=== PATIENT | female | born 1950 | race Caucasian/White ===

== ENCOUNTER 2018-03-20 13:35 | Inpatient (IN) | payer OTHER ==
[~2018-03-20] VITALS: Ht 154.9 cm; Wt 66.0 kg
[~2018-03-20 13:35] MED LIST: CAR1 PO; COL100 PO; FERROUS SULFAT325 M2 PO; NAPROSYN500 MG PO; PRILOSEC40 MG PO
[2018-03-20 13:49] VITALS: Ht 154.9 cm; Wt 66.0 kg
[2018-03-20 14:26] LABS: BASOPHIL % 0.4 % (0-2); PLATELET COUNT 196 x10^3mcL (130-400); RED CELL DISTRIBUTION WIDTH 13.6 % (11.5-14.5)
[2018-03-20 14:37] LABS: CALCIUM 8.2 mg/dL (8.5-10.1); CREATININE SERUM 1.4 mg/dL (0.6-1.0); POTASSIUM SERUM 3.8 mmol/L (3.5-5.1)
[2018-03-20 14:42] LABS: BILIRUBIN TOTAL 0.2 mg/dL (0.20-1.00); C REACTIVE PROTEIN 9.3 mg/dL (<=0.9); TOTAL PROTEIN, SERUM 7.2 g/dL (6.4-8.2); URIC ACID 6.6 mg/dL (2.6-6.0)
[2018-03-20 14:45] LABS: ALBUMIN 2.9 g/dL (3.4-5.0)
[2018-03-20 15:35] LABS: ERYTHROCYTE SED RATE 95 mm/hr (0-30)
[2018-03-20 16:56] LABS: T3 TOTAL 0.78 ng/mL
[2018-03-20 17:01] VITALS: BP 156/66
[2018-03-20 17:15] LABS: CHOLESTEROL/HDL RATIO 3.2; MAGNESIUM 1.6 mg/dL (1.8-2.4); PHOSPHOROUS 3.1 mg/dL (2.5-4.9)
[2018-03-20 17:38] LABS: FREE T4 0.94 ng/dL (0.76-1.46); T4(THYROXINE) 6.2 ug/dL (4.7-13.3)
[2018-03-20 17:45] VITALS: BP 156/66
[2018-03-20 20:59] LABS: RED BLOOD CELLS 2.53 M/mm3 (4.10-5.10)
[2018-03-20 21:04] VITALS: BP 117/65
[2018-03-20 21:08] LABS: IRON 60 ug/dL (50-170)
[2018-03-20 21:18] LABS: TOTAL IRON BINDING CAPACITY 222 ug/dL (250-450)
[2018-03-21 05:22] VITALS: BP 99/52
[2018-03-21 06:38] LABS: CALCIUM 7.6 mg/dL (8.5-10.1); CARBON DIOXIDE 15.7 mmol/L (21-32); CREATININE SERUM 1.7 mg/dL (0.6-1.0); MAGNESIUM 1.4 mg/dL (1.8-2.4); PHOSPHOROUS 3.9 mg/dL (2.5-4.9); POTASSIUM SERUM 4.1 mmol/L (3.5-5.1)
[2018-03-21 07:32] LABS: BASOPHIL % 0.4 % (0-2); PLATELET COUNT 157 x10^3mcL (130-400); RED CELL DISTRIBUTION WIDTH 13.4 % (11.5-14.5)
[2018-03-21 07:38] LABS: microscopic required? YES; urine erythrocyte NEGATIVE (NEGATIVE)
[2018-03-21 08:08] LABS: AMPHETAMINE QUAL UR NONE DETECTED (See below)
[2018-03-21 10:21] VITALS: BP 120/64
[2018-03-21 13:15] VITALS: BP 118/55
[2018-03-21 17:28] VITALS: BP 138/68
[2018-03-21 21:04] VITALS: BP 129/56
[2018-03-22 05:12] VITALS: BP 134/62
[2018-03-22 06:45] LABS: CALCIUM 7.6 mg/dL (8.5-10.1); CARBON DIOXIDE 15.4 mmol/L (21-32); CREATININE SERUM 1.7 mg/dL (0.6-1.0); MAGNESIUM 1.5 mg/dL (1.8-2.4); PHOSPHOROUS 3.8 mg/dL (2.5-4.9)
[2018-03-22 08:14] LABS: BASOPHIL % 0.6 % (0-2); PLATELET COUNT 156 x10^3mcL (130-400); RED CELL DISTRIBUTION WIDTH 12.7 % (11.5-14.5)
[2018-03-22 09:48] VITALS: BP 126/66
[2018-03-22] MEDS ORDERED: BACTRIM DS1 TAB PO (11:04)
[2018-03-22] MEDS ORDERED: KEFLEX250 M1 PO (11:05)
[2018-03-22 11:47] VITALS: BP 126/66
[2018-03-22 12:41] VITALS: BP 142/64
== END 2018-03-22 14:18 | disposition home or self-care (01) | DRG 987 ==
LOC: ED 13:35 → DU 15:48
PROVIDERS: Emergency Medicine; Family Medicine
PROC: 0S9D0ZZ Drainage of Left Knee Joint, Open Approach (ICD-10-PCS; principal; 2018-03-20)
DX: L02.416 Cutaneous abscess of left lower limb (principal); N17.0 Acute kidney failure with tubular necrosis; E44.0 Moderate protein-calorie malnutrition; M71.162 Other infective bursitis, left knee; L03.116 Cellulitis of left lower limb; M06.9 Rheumatoid arthritis, unspecified; E83.42 Hypomagnesemia; D53.9 Nutritional anemia, unspecified; E78.5 Hyperlipidemia, unspecified; Z68.27 Body mass index [BMI] 27.0-27.9, adult
CPT/HCPCS: 83880; 84439; 90658; 90732; J2001; J2543; J3370; J7030; Q0092